=== PATIENT | male | born 1960 | race Caucasian/White ===

== ENCOUNTER 2017-01-25 11:01 | Outpatient (RCR) | payer MEDICARE, MEDICAID ==
[~2017-01-25 11:01] MED LIST: BISO1TAB39; CLON1TAB69 PO; FRSM20T PO; GBPN100C; MTP100TCR PO; SULF1TAB38 PO; [UNRECOGNIZED DRUG - CODE] PO
--- OUTSIDE RECORDS SUMMARY | 2017-01-25 11:04 | XMS REPORT | Continuity of Care Document ---
Author Author [facility] Organization [facility] Address Unknown Phone Unavailable Care Team Providers Care Laborer Operator Name Role Phone Tavon Rojo PCP [phone] Source Comments Some departments are not documenting in the electronic medical record. If you do not see the information that you expected, contact Release of Information in the Health Information Management department at [phone] for further assistance in locating additional records.[facility] Active Allergies and Adverse Reactions Allergen Noted Date Severity Reactions Comments Bees 07/08/2016 High UNKNOWN Current Medications Prescription Sig. Disp. Refills Start End Date Status Date primidone (MYSOLINE) 250 Take 250 mg by mouth Active mg tablet three times daily. clonazePAM (KLONOPIN) 1 Take 1 mg by mouth twice Active mg tablet daily. topiramate (TOPAMAX) 50 Take 1 Tab by mouth twice 60 Tab 5 07/08/20 Active mg tablet daily. Start 1/2 tab 16 twice daily for 5 days, then 1/2 tab in AM and 1 tab in PM for 5 days, then 1 tab twice daily Active Problems Problem Noted Date Essential tremor 10/19/2016 Developmental disability 07/08/2016 Scoliosis 07/08/2016 Social History Tobacco Use Types Packs/Day Years Used Date Never Smoker Alcohol Use Drinks/Week oz/Week Comments No 0 Standard 0.0 drinks or equivalent Last Filed Vital Signs Vital Sign Reading Time Taken Blood Pressure 132/96 10/19/2016 11:16 AM [facility] [employer] [employer] Pulse 98 10/19/2016 11:16 AM [facility] [employer] Temperature 36.4 C (97.5 F) 10/19/2016 11:16 AM [facility] Respiratory Rate 18 10/19/2016 11:16 AM [facility] Height 1.803 m (5' 11") 07/08/2016 1:16 PM CDT Weight 129.003 kg (284 lb 6.4 10/19/2016 11:16 AM [facility] oz) Body Mass Index 39.68 10/19/2016 11:16 AM [facility] [employer] Oxygen Saturation 94% 10/19/2016 11:16 AM [facility] Plan of Care Date Type Specialty Providers Description 07/20/2017 Appointment Neurology Mazin Moralez DO [address] [facility] [address] [place] [address] [phone] (Fax) Health Maintenance Due Date Last Done Comments Hepatitis C Screening 1960 Physical (Comprehensive) 1967 Exam Pertussis Vaccine 1971 Tetanus Vaccine 1977 Colorectal Cancer 2010 Screening Influenza Vaccine 07/21/2016 Results from Last 3 Months Not on file
== END 2017-01-25 13:01 | disposition home or self-care (01) ==
PROVIDERS: ATTEND Internal Medicine
DX: I87.2 Venous insufficiency (chronic) (peripheral) (principal)